=== PATIENT | female | born 1980 | race Caucasian/White ===

== ENCOUNTER 2016-03-27 | Outpatient (CLI) | payer SELFPAY | END 2016-03-27 14:32 | disposition critical access hospital (66) | CPT/HCPCS: A0425; A0429 ==

== ENCOUNTER 2016-03-27 14:53 | Emergency (ER) | payer SELFPAY ==
--- NOTE | 2016-03-27 15:40 | ED Physician Documentation ---
PD HPI SEIZURE - Stated complaint Stated Complaint: SEIZURE - Chief complaint Chief Complaint: General - History obtained from History obtained from: Patient, EMS, Caregiver - History of Present Illness Timing - onset: Today Witnessed: Witnessed Number of seizures: Single, Lasted minutes Description of seizure activity: Generalized Injury during seizure: None Associated symptoms: None, Dyspnea. No: Headache, Vision changes, Chest pain, Palpitations History of seizures: Known seizure disorder (has them infrequently about 1-2 per year and had been without seizure for awhile (2-3 years) so had stopped Lamictal about 2 years ago. Has had a seizure 3 months ago and again today. She would like to try being back on meds.) Contributing factors: Off meds. No: Substance abuse, EtOH withdrawal, Overdose , Fever, Sleep deprivation Similar symptoms before: Diagnosis (seizures) Recently seen: Clinic (seen for depression and anxiety. Had been on Celexa but not helping well, so is being weaned off to then start another. Feeling more anxious recently. Was back at PCP office today to discuss other meds and had generalized seizure with wetting/tongue biting and postictal confusion.) Review of Systems Constitutional: reports: Fever, Chills Nose: denies: Rhinorrhea / runny nose, Congestion Throat: denies: Sore throat Cardiac: denies: Palpitations, Pedal edema, Calf pain Respiratory: denies: Dyspnea, Cough PD PAST MEDICAL HISTORY - Past Medical History Neuro: Seizure disorder Psych: Depression - Past Surgical History Past Surgical History: No - Present Medications Home Medications: Ambulatory Orders Medication Instructions Recorded Confirmed Citalopram [CeleXA] 20 mg PO DAILY 04/09/15 04/09/15 [place] Carbonate 300 mg PO DAILY 03/27/16 03/27/16 Lorazepam [Ativan] 1 mg PO BID #15 tab 03/27/16 Montelukast [Singulair] 10 mg PO QPM 03/27/16 03/27/16 Ondansetron Odt [Zofran] 4 mg TL Q6H PRN #15 tablet 03/27/16 Potassium Chloride 10 meq PO DAILY #10 tab.er.prt 03/27/16 lamoTRIgine [LaMICtal] 25 mg PO DAILY #30 tablet 03/27/16 - Allergies Allergies/Adverse Reactions: Allergies Allergy/AdvReac Type Severity Reaction Status Date / Time No Known Drug Allergies Allergy Verified 03/27/16 15:14 - Social History Does the pt smoke?: No Smoking Status: Current every day smoker Does the pt drink ETOH?: Yes Does the pt have substance abuse?: Yes - Immunizations Immunizations are current?: Yes PD ED PE NORMAL - Vitals Vital signs reviewed: Yes - General General: Alert and oriented X 3, No acute distress, Well developed/nourished - HEENT HEENT: Ears normal, Moist mucous membranes, Pharynx benign, Other (mild lateral tongue abrasion) - Neck Neck: Supple, no meningeal sign, No adenopathy - Cardiac Cardiac: RRR, No murmur - Respiratory Respiratory: Clear bilaterally - Abdomen Abdomen: Soft, Non tender - Back Back: No CVA TTP - Derm Derm: Normal color, Warm and dry - Extremities Extremities: No tenderness to palpate, Normal ROM s pain, No edema - Neuro Neuro: Alert and oriented X 3, 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 mixer operator 2-12 intact, No motor deficit, No sensory deficit, Normal speech - Psych Psych: Normal mood, Normal affect Results - Vitals Vitals: Oxygen O2 Source Room air - Labs Labs: Laboratory Tests 03/27/16 03/27/16 03/27/16 16:15 16:15 16:15 WBC 14.1 H RBC 4.08 L Hgb 14.9 Hct 43.0 MCV 105.3 H MCH 36.4 H MCHC 34.6 RDW 14.9 Plt Count 174 MPV 8.0 Neut # 12.3 H Lymph # 1.1 L [place] # 0.6 Eos # 0.0 Baso # 0.1 Absolute Nucleated RBC 0.00 Nucleated RBCs 0.0 Sodium 136 Potassium 2.9 L Chloride 101 Carbon Dioxide 24 Anion Gap 11.0 BUN 6 Creatinine 1.1 H Estimated GFR (MDRD) 57 L Glucose 108 H Calcium 8.5 Magnesium 1.8 Total Bilirubin 1.0 AST 43 H ALT 23 Alkaline Phosphatase 79 Total Protein 6.5 L Albumin 3.8 Globulin 2.7 Albumin/Globulin Ratio 1.4 Lipase 48 Urine Color Urine Clarity Urine pH Ur Specific [place] Urine Protein Urine Glucose (UA) Urine Ketones Urine Occult Blood Urine Nitrite Urine Bilirubin Urine Urobilinogen Ur Leukocyte Esterase Ur Microscopic Review Urine Culture Comments Last Dose Date UNK Last Dose Time UNK Urine Opiates Screen Ur Oxycodone Screen Urine Methadone Screen Ur Propoxyphene Screen Ur Barbiturates Screen Ur Tricyclics Screen Ur Phencyclidine Scrn Ur Amphetamine Screen U Methamphetamines Scrn U Benzodiazepines Scrn [place] 0.15 Urine Cocaine Screen U Cannabinoids Screen Ethyl Alcohol < 5.0 03/27/16 17:41 WBC RBC Hgb Hct MCV MCH MCHC RDW Plt Count MPV Neut # Lymph # [place] # Eos # Baso # Absolute Nucleated RBC Nucleated RBCs Sodium Potassium Chloride Carbon Dioxide Anion Gap BUN Creatinine Estimated GFR (MDRD) Glucose Calcium Magnesium Total Bilirubin AST ALT Alkaline Phosphatase Total Protein Albumin Globulin Albumin/Globulin Ratio Lipase Urine Color LIGHT YELLOW Urine Clarity CLEAR Urine pH 7.0 Ur Specific [place] <=1.005 Urine Protein NEGATIVE Urine Glucose (UA) NEGATIVE Urine Ketones NEGATIVE Urine Occult Blood NEGATIVE Urine Nitrite NEGATIVE Urine Bilirubin NEGATIVE Urine Urobilinogen 0.2 (NORMAL) Ur Leukocyte Esterase NEGATIVE Ur Microscopic Review NOT INDICATED Urine Culture Comments NOT INDICATED Last Dose Date Last Dose Time Urine Opiates Screen NEGATIVE Ur Oxycodone Screen NEGATIVE Urine Methadone Screen NEGATIVE Ur Propoxyphene Screen NEGATIVE Ur Barbiturates Screen NEGATIVE Ur Tricyclics Screen NEGATIVE Ur Phencyclidine Scrn NEGATIVE Ur Amphetamine Screen NEGATIVE U Methamphetamines Scrn NEGATIVE U Benzodiazepines Scrn NEGATIVE [place] Urine Cocaine Screen NEGATIVE U Cannabinoids Screen NEGATIVE Ethyl Alcohol PD MEDICAL DECISION MAKING - ED course Complexity details: considered differential, d/w patient (she would like to be back on antiepileptic. Had been on Lamictal in the past. ), d/w intelligence consultant (weight control engineer for Dr. Javier - Lamictal is good choice if she had been on it in the past and did well. Help with mood as well. Keppra could augment depressive mood. However the Lamictal does not work quickly, so need to orally load over time. Patient okay with this, as her seizures are infrequent anyway.) Departure - Departure Disposition: 01 Home, Self Care Clinical Impression: Seizure, Hypokalemia Upper respiratory infection Qualifiers: URI type: unspecified URI Qualified Code(s): J06.9 - Acute upper respiratory infection, unspecified Condition: Stable Record reviewed to determine appropriate education?: Yes Instructions: Hypokalemia Dc, ED Seizure Recurrent Follow-Up: Alicia Barksdale, ENVIRONMENTAL QUALITY ANALYST [Primary Care Provider] - Fredrick Javier MD [Physician No Access] - Prescriptions: Lorazepam [Ativan] 1 mg PO BID #15 tab lamoTRIgine [LaMICtal] 25 mg PO DAILY #30 tablet Potassium Chloride 10 meq PO DAILY #10 tab.er.prt Ondansetron Odt [Zofran] 4 mg TL Q6H PRN #15 tablet PRN Reason: Nausea / Vomiting Comments: Drink lots of fluids. Zofran if needed for nausea. Daily potassium for 10 days. Start Lamictal every other day for a week, then daily for a week. Follow up with PCP and Neurologist. Ativan nightly for sleep the next week, and can take it twice daily for anxiety/shaky as needed. No driving until cleared by Neurologist. Off work for a few days. Forms: Activity restrictions Discharge Date/Time: 03/27/16 18:37
[2016-03-27] MEDS ORDERED: LORazepam 2 MG/ML SYRINGE IVP STA (15:57)
[2016-03-27] MEDS ORDERED: SODIUM CHLORIDE 0.9% 1,000 ML IV ONE (15:57)
[2016-03-27] MEDS ORDERED: LORazepam 2 MG/ML SYRINGE ONE (16:08)
[2016-03-27 16:20] LABS: BASOPHILS # (AUTO) 0.1 10^3/uL (0.0-0.1); BASOPHILS % (AUTO) 0.6 %; EOSINOPHILS % (AUTO) 0.3 %; HGB - HEMOGLOBIN 14.9 g/dL (12.0-16.0); LYMPHOCYTES # (AUTO) 1.1 10^3/uL (1.5-3.5); LYMPHOCYTES % (AUTO) 7.9 %; MEAN CORPUSCULAR HEMOGLOBIN 36.4 pg (27.0-31.0); MEAN CORPUSCULAR HGB CONC 34.6 g/dL (32.0-36.0); MEAN CORPUSCULAR VOLUME 105.3 fL (81.0-99.0); MONOCYTES # (AUTO) 0.6 10^3/uL (0.0-1.0); MONOCYTES % (AUTO) 4.3 %; NEUTROPHILS # (AUTO) 12.3 10^3/uL (1.5-6.6); NEUTROPHILS % (AUTO) 86.9 %; RED BLOOD COUNT 4.08 10^6/uL (4.20-5.40); RED CELL DISTRIBUTION WIDTH 14.9 % (12.0-15.0); UNCORRECTED WHITE BLOOD COUNT 14.1 x10^3/uL; WHITE BLOOD COUNT 14.1 x10^3/uL (4.8-10.8)
[2016-03-27 16:34] LABS: ALBUMIN/GLOBULIN RATIO 1.4 (1.0-2.2); BUN - BLOOD UREA NITROGEN 6 mg/dL (6-20); CALCIUM 8.5 mg/dL (8.5-10.3); CARBON DIOXIDE - CO2 24 mmol/L (21-32); CHLORIDE 101 mmol/L (101-111); CREATININE 1.1 mg/dL (0.4-1.0); GFR - MDRD 57 (>89); GLUCOSE 108 mg/dL (70-100); LIPASE 48 U/L (22-51); MAGNESIUM 1.8 mg/dL (1.7-2.8); POTASSIUM 2.9 mmol/L (3.5-5.0); SODIUM 136 mmol/L (135-145); TOTAL PROTEIN 6.5 g/dL (6.7-8.2)
--- NOTE | 2016-03-27 16:42 | XRAY Preliminary Report ---
Exam: XR Chest 1 View IMPRESSION: Normal single view chest. [facility] SITE ID: [id number]
--- NOTE | 2016-03-27 16:45 | XRAY Report ---
EXAM: CHEST RADIOGRAPHY EXAM DATE: 03/27/2016 04:24 PM. CLINICAL HISTORY: Seizure, cough/wheeze. COMPARISON: None. TECHNIQUE: 1 view. FINDINGS: Lungs/Pleura: No focal opacities evident. No pneumothorax or pleural effusion. Mediastinum: Within exam limitations, cardiomediastinal contour is normal. Other: None. IMPRESSION: Normal single view chest. [facility] Referring Provider Line: [phone] SITE ID: [id number]
[2016-03-27] MEDS ORDERED: POTASSIUM BICARB 25 MEQ TABLET PO STA (16:48)
[2016-03-27] MEDS ORDERED: POTASSIUM BICARB 25 MEQ TABLET PO ONE ×2 (16:54→16:58)
[2016-03-27] MEDS ORDERED: lamoTRIgine 25 MG TABLET PO STA (17:41)
[2016-03-27 17:55] LABS: BILIRUBIN,URINE NEGATIVE (NEGATIVE)
[2016-03-27 17:57] LABS: UA CHARGE (STRIP ONLY) YES; UR CULTURE IF IND NOT INDICATED
[2016-03-27 18:37] VITALS: BP 147/101
== END 2016-03-27 18:37 | disposition home or self-care (01) ==
LOC: EDUNIT# → ED 14:53
DX: G40.909 Epilepsy, unspecified, not intractable, without status epilepticus (principal); E87.6 Hypokalemia; J06.9 Acute upper respiratory infection, unspecified; S00.512A Abrasion of oral cavity, initial encounter; X58.XXXA Exposure to other specified factors, initial encounter; F17.200 Nicotine dependence, unspecified, uncomplicated
CPT/HCPCS: 36415; 71010; 80053; 80178; 80306; 80320; 81003; 83690; 83735; 85025; 96361; 96374; 99284; A9270; J2060; 81001; 87086

== ENCOUNTER 2016-04-14 | Outpatient (CLI) | payer SELFPAY | END 2016-04-14 16:05 | disposition EMS.NT | DX: R56.9 Unspecified convulsions (principal) ==

== ENCOUNTER 2016-04-14 16:39 | Emergency (ER) | payer SELFPAY ==
[2016-04-14] MEDS ORDERED: IPRATROPIUM/ALBUTEROL 3 ML NEB INH STA (17:19)
[2016-04-14] MEDS ORDERED: SODIUM CHLORIDE 0.9% 1,000 ML IV ONE ×2 (17:26→19:39)
[2016-04-14] MEDS ORDERED: LORazepam 2 MG/ML SYRINGE IVP STA (17:26)
[2016-04-14] MEDS ORDERED: IPRATROPIUM/ALBUTEROL 3 ML NEB INH ONE (17:32)
[2016-04-14] MEDS ORDERED: LORazepam 2 MG/ML SYRINGE ONE (17:45)
[2016-04-14] MEDS ORDERED: POTASSIUM BICARB 25 MEQ TABLET PO STA (19:23)
[2016-04-14] MEDS ORDERED: MAGNESIUM SULFATE 2 GRAM 50 ML IV ONE ×2 (19:23→19:33)
[2016-04-14] MEDS ORDERED: POTASSIUM BICARB 25 MEQ TABLET PO ONE (19:33)
[2016-04-14] MEDS ORDERED: ALBUTEROL 8 GM INHALER INH STA (20:52)
[2016-04-14] MEDS ORDERED: ALBUTEROL 8 GM INHALER INH ONE (21:19)
== END 2016-04-14 21:59 | disposition home or self-care (01) ==
DX: G40.909 Epilepsy, unspecified, not intractable, without status epilepticus (principal); E87.6 Hypokalemia; R06.2 Wheezing; R03.0 Elevated blood-pressure reading, without diagnosis of hypertension; F17.200 Nicotine dependence, unspecified, uncomplicated
CPT/HCPCS: 36415; 71020; 80053; 83690; 85025; 94640; 94664; 96361; 96374; 96375; 99284; A9270; J2060; J7620

== ENCOUNTER 2016-04-18 08:00 | Outpatient (CLI) | payer SELFPAY | END 2016-04-18 08:01 | disposition home or self-care (01) | DX: E87.6 Hypokalemia (principal) ==

== ENCOUNTER 2016-04-18 15:12 | Inpatient (IN) | payer SELFPAY ==
[2016-04-18] MEDS ORDERED: POTASSIUM CHLOR 10 MEQ/100 ML 100 ML IV ONE ×2 (16:25→16:39)
[2016-04-18] MEDS ORDERED: SODIUM CHLORIDE 0.9% 1,000 ML IV ONE ×2 (16:25→16:39)
[2016-04-18] MEDS ORDERED: POTASSIUM BICARB 25 MEQ TABLET PO STA (16:25)
[2016-04-18] MEDS ORDERED: POTASSIUM BICARB 25 MEQ TABLET PO ONE (16:39)
[2016-04-18] MEDS ORDERED: ONDANSETRON 4 MG/2 ML VIAL IVP STA (16:46)
[2016-04-18] MEDS ORDERED: ONDANSETRON 4 MG/2 ML VIAL ONE (16:54)
[2016-04-18] MEDS ORDERED: HYDROcod/ACETAM 5/325 MG TABLET PO PRN (18:01)
[2016-04-18] MEDS ORDERED: ONDANSETRON ODT 4 MG TABLET TL PRN (18:01)
[2016-04-18] MEDS ORDERED: SODIUM CHLORIDE FLUSH 0.9% 10 ML SYRINGE IVP PRN (18:01)
[2016-04-18] MEDS ORDERED: ACETAMINOPHEN 325 MG TABLET PO PRN (18:01)
[2016-04-18] MEDS ORDERED: LORazepam 2 MG/ML SYRINGE IVP PRN (18:19)
[2016-04-18] MEDS ORDERED: NICOTINE 14 MG PATCH TOP STA (18:30)
[2016-04-18] MEDS: PANTOPRAZOLE 40 MG TABLET PO SCH (19:32)
[2016-04-18] MEDS ORDERED: POTASSIUM CHLORIDE 20 MEQ TABLET PO SCH (23:47)
[2016-04-19] MEDS: NS W/20 MEQ KCL 1,000 ML IV SCH ×2 (00:13→08:32)
[2016-04-19] MEDS: SODIUM CHLORIDE FLUSH 0.9% 10 ML SYRINGE IVP SCH ×2 (00:13→06:06)
[2016-04-19] MEDS: PANTOPRAZOLE 40 MG TABLET PO SCH (06:05)
[2016-04-19] MEDS ORDERED: POLYETHYLENE GLYCOL 3350 17 GM PACKET PO SCH (09:00)
[2016-04-19] MEDS ORDERED: ENOXAPARIN 40 MG/0.4 ML SYRINGE SUBQ SCH (09:00)
== END 2016-04-19 08:53 | disposition home or self-care (01) | DRG 641 ==
DX: E87.6 Hypokalemia (principal); R19.7 Diarrhea, unspecified; F17.210 Nicotine dependence, cigarettes, uncomplicated; R11.2 Nausea with vomiting, unspecified; F41.9 Anxiety disorder, unspecified; F31.9 Bipolar disorder, unspecified; R56.9 Unspecified convulsions

== ENCOUNTER 2016-04-22 14:02 | Outpatient (CLI) | payer SELFPAY | END 2016-04-22 14:03 | disposition home or self-care (01) | DX: Z53.9 Procedure and treatment not carried out, unspecified reason (principal) ==

== ENCOUNTER 2016-04-23 14:01 | Outpatient (CLI) | payer SELFPAY | END 2016-04-23 14:02 | disposition home or self-care (01) | DX: Z79.899 Other long term (current) drug therapy (principal) ==

== ENCOUNTER 2016-05-25 17:06 | Emergency (ER) | payer SELFPAY | END 2016-05-25 19:46 | disposition home or self-care (01) | DX: T49.6X5A Adverse effect of otorhinolaryngological drugs and preparations, initial encounter (principal); Y92.512 Supermarket, store or market as the place of occurrence of the external cause; F10.129 Alcohol abuse with intoxication, unspecified; T50.996A Underdosing of other drugs, medicaments and biological substances, initial encounter; Z91.128 Patient's intentional underdosing of medication regimen for other reason; J45.909 Unspecified asthma, uncomplicated; F17.200 Nicotine dependence, unspecified, uncomplicated ==

== ENCOUNTER 2016-11-03 11:42 | Emergency (ER) | payer MEDICAID ==
[2016-11-03] MEDS ORDERED: SODIUM CHLORIDE 0.9% 1,000 ML IV ONE (14:45)
[2016-11-03] MEDS ORDERED: IOPAMIDOL-300 50 ML VIAL ONE (14:54)
[2016-11-03] MEDS ORDERED: IOPAMIDOL-300 100 ML VIAL ONE (14:54)
--- NOTE | 2016-11-03 14:54 | ED Physician Documentation ---
History of Present Illness - Stated complaint Stated Complaint: CONSTIPATED - Chief complaint Chief Complaint: Abd Pain - Additonal information Additional information: hx from pt 36 female 3 months of abd cramps, inc abd girth, swelling to LLQ and abn BM - mosltly very small BMs and liquid finally saw PMD last week, rx mag citrate - no imaging or rectal exam at that time took 3 bottles of mag citrate and no relief, also other laxatives s relief no prior abd surgery denies preg not sexually active for 10 yr Review of Systems Constitutional: denies: Fever, Chills Cardiac: denies: Chest pain / pressure Respiratory: denies: Dyspnea GI: reports: Abdominal Pain, Constipation, Diarrhea. 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 : None Psych: Depression, Anxiety Musculoskeletal: None - Past Surgical History Past Surgical History: No - Present Medications Home Medications: Ambulatory Orders Medication Instructions Recorded Confirmed Albuterol Sulf [Ventolin Hfa 2 puffs INH Q4HR PRN #1 inhaler 04/14/16 11/03/16 Inhaler] Potassium Citrate [Potassium 1 tab PO DAILY 11/03/16 11/03/16 Citrate ER] - Allergies Allergies/Adverse Reactions: Allergies Allergy/AdvReac Type Severity Reaction Status Date / Time No Known Drug Allergies Allergy Verified 05/25/16 17:16 - Social History Does the pt smoke?: Yes Smoking Status: Current every day smoker Does the pt drink ETOH?: No Does the pt have substance abuse?: No - Immunizations Immunizations are current?: Yes - POLST Patient has POLST: No PD ED PE NORMAL - Vitals Vital signs reviewed: Yes - Neck Neck: Supple, no meningeal sign - Cardiac Cardiac: RRR - Respiratory Respiratory: No respiratory distress, Clear bilaterally - Abdomen Abdomen: Other (+ BS, mild distension, ? mass LLQ, mild to mod diffuse TTP) - Rectal Rectal: Other (no stool in vault, no mass occuclt blood neg (no stool, QC passed )) - Derm Derm: Normal color - Neuro Neuro: Alert and oriented X 3 Results - Vitals Vitals: Vital Signs - 24 hr 11/03/16 11/03/16 11/03/16 12:06 14:05 15:50 Temperature 36.7 C 36.9 C Heart Rate 101 H 96 90 Respiratory 20 18 15 Rate Blood Pressure 133/96 H 138/93 H 139/101 H O2 Saturation 99 98 98 11/03/16 17:50 Temperature 36.5 C Heart Rate 81 Respiratory 14 Rate Blood Pressure 128/100 H O2 Saturation 100 Oxygen O2 Source Room air - Labs Labs: Laboratory Tests 11/03/16 11/03/16 11/03/16 14:59 14:59 14:59 WBC 9.7 RBC 3.64 L Hgb 13.3 Hct 39.2 MCV 107.5 H MCH 36.5 H MCHC 34.0 RDW 14.7 Plt Count 247 MPV 7.8 L Neut # 7.0 H Lymph # 1.8 [place] # 0.6 Eos # 0.2 Baso # 0.1 Absolute Nucleated RBC 0.00 Nucleated RBCs 0.0 Sodium 137 Potassium 3.3 L Chloride 106 Carbon Dioxide 24 Anion Gap 7.0 BUN 5 L Creatinine 0.5 Estimated GFR (MDRD) 140 Glucose 97 Calcium 8.4 L Total Bilirubin 0.8 AST 35 ALT 26 Alkaline Phosphatase 104 Total Protein 6.6 L Albumin 3.0 L Globulin 3.6 Albumin/Globulin Ratio 0.8 L Lipase 77 H Serum HCG, Qual NEGATIVE - Rads (name of study) CT PO and IV CT abd pelvis Radiology: EMP read contemporaneously (markedly abnormal and enlarged fatty liver, no mass noted, portal vein thrombosis with cavernous transformation and extensive collaterals in upper abd including esophageal, gastric and peripancreatic, mod to large ascites, 2.2 cm L ovarian cyst, non obstructive bowel otis, nl appendix) PD MEDICAL DECISION MAKING - ED course ED course: CT shows severe liver dx with portal vein thrombosis, collateral and ascites, but no bowel obstruction pt admits to long hx of heavy drinking, quit about a month ago 2/2 these sx will dc with referral to [facility] for further eval of liver dz and consideration of colonoscopy Departure - Departure Disposition: 01 Home, Self Care Clinical Impression: Liver disease due to alcohol Ascites Qualifiers: Ascites type: other type Qualified Code(s): R18.8 - Other ascites Condition: Fair Instructions: ED Ascites Follow-Up: [facility] [Provider Group] (call [facility] at [phone] to schedule follow up) Comments: The CT scan did not show any major bowel issues - but it did show significant liver disease with resultant ascites and portal vein thrombosis with collateral blood flow You can go home for today but you will need to follow up with the GI doctors for further evaluation and management - perhaps drain some of the ascites for testing, perhaps biopsy your liver, perhaps do a colonoscopy. I spoke to to the sole conditioner doctor and he advises that you should call the clinic in the morning to schedule an appointment Forms: Activity restrictions
[2016-11-03 15:05] LABS: BASOPHILS # (AUTO) 0.1 10^3/uL (0.0-0.1); BASOPHILS % (AUTO) 1.1 %; EOSINOPHILS # (AUTO) 0.2 10^3/uL (0.0-0.7); HCT - HEMATOCRIT 39.2 % (37.0-47.0); HGB - HEMOGLOBIN 13.3 g/dL (12.0-16.0); LYMPHOCYTES # (AUTO) 1.8 10^3/uL (1.5-3.5); LYMPHOCYTES % (AUTO) 18.9 %; MEAN CORPUSCULAR HEMOGLOBIN 36.5 pg (27.0-31.0); MEAN CORPUSCULAR VOLUME 107.5 fL (81.0-99.0); MEAN PLATELET VOLUME 7.8 fL (7.9-10.8); MONOCYTES # (AUTO) 0.6 10^3/uL (0.0-1.0); MONOCYTES % (AUTO) 5.9 %; NEUTROPHILS % (AUTO) 72.1 %; RED BLOOD COUNT 3.64 10^6/uL (4.20-5.40); RED CELL DISTRIBUTION WIDTH 14.7 % (12.0-15.0); UNCORRECTED WHITE BLOOD COUNT 9.7 x10^3/uL; WHITE BLOOD COUNT 9.7 x10^3/uL (4.8-10.8)
[2016-11-03 15:17] LABS: ALBUMIN/GLOBULIN RATIO 0.8 (1.0-2.2); BILIRUBIN,TOTAL 0.8 mg/dL (0.2-1.0); CALCIUM 8.4 mg/dL (8.5-10.3); CREATININE 0.5 mg/dL (0.4-1.0); POTASSIUM 3.3 mmol/L (3.5-5.0); TOTAL PROTEIN 6.6 g/dL (6.7-8.2)
[2016-11-03] MEDS ORDERED: IOPAMIDOL-300 100 ML VIAL IVP ONE (16:31)
[2016-11-03] MEDS ORDERED: IOPAMIDOL-300 50 ML VIAL PO ONE (16:31)
--- NOTE | 2016-11-03 17:42 | CT Preliminary Report ---
Exam: CT Abdomen/Pelvis W/ IMPRESSION: 1. Markedly abnormal, fatty and enlarged liver. No mass is noted. 2. Portal vein thrombosis with cavernous transformation. Splenic vein thrombosis or attenuation. Exte nsive collaterals are noted in the upper abdomen including esophageal, gastric and peripancreatic col laterals. 3. Moderate to large amount of ascites in the abdomen and pelvis. 4. 2.2 cm left ovarian cyst without concerning features. 5. Nonobstructive bowel gas pattern. Normal appendix. [facility] SITE ID: [id number]
--- NOTE | 2016-11-03 18:12 | CT Report ---
EXAM: CT ABDOMEN AND PELVIS EXAM DATE: 11/03/2016 04:42 PM. CLINICAL HISTORY: LLQ pain, ? mass, small BMs. COMPARISONS: None. TECHNIQUE: Routine helical CT imaging was performed through the abdomen and pelvis. IV contrast: 100 mL Isovue-300. Enteric contrast: Yes. Reconstructions: Coronal and sagittal. In accordance with CT protocol optimization, one or more of the following dose reduction techniques w ere utilized for this exam: automated exposure control, adjustment of mA and/or KV based on patient s ize, or use of iterative reconstructive technique. FINDINGS: Lung Bases: No effusions. No cardiac enlargement. Small hernia. Small esophageal varices. Liver: Markedly hypoattenuating liver parenchyma. No intrahepatic bile duct dilation or liver mass. Gallbladder/Bile Ducts: Unremarkable. Spleen: Normal. Pancreas: No pancreatic duct dilation, pancreatic calcifications or pancreatic mass is noted. Peripan creatic collateral vascularity noted. 5 mm pancreatic tail and 5 x 7 mm pancreatic body cystic struct ures best seen on image 30. No mass or nodular component is noted in the cystic structures. Adrenal Glands: Normal. Kidneys: No mass or hydronephrosis. Possible nonobstructing bilateral renal stones. Peritoneal Cavity/Bowel: Large amount of abdominal ascites. Nonspecific mesenteric stranding is noted in the abdomen and pelvis. No pneumoperitoneum. No dilated bowel concerning for obstruction. The caleb endix is well visualized and normal. There are multiple diverticula seen which most severely affect t he sigmoid colon. No wall thickening or adjacent inflammation seen. No obstruction noted. Pelvic Organs: Normal bladder. No uterine masses are noted. 2.2 cm left ovarian cyst without concerni ng features, image 78. Right ovary and adnexa not well seen. Probable additional smaller left-sided o varian cyst not well characterized. Large amount of nonloculated pelvic ascites. Vasculature: Complete portal vein thrombosis with cavernous transformation is noted. The splenic vein is attenuated or thrombosed. The more central aspects of the SMV are also thrombosed. Extensive geeta evelin, esophageal and peripancreatic collaterals. Bones: No significant abnormality. Other: None. IMPRESSION: 1. Markedly abnormal, fatty and enlarged liver. No mass is noted. 2. Portal vein thrombosis with cavernous transformation. Splenic vein thrombosis or attenuation. Exte nsive collaterals are noted in the upper abdomen including esophageal, gastric and peripancreatic col laterals. 3. Moderate to large amount of ascites in the abdomen and pelvis. 4. A 2.2 cm left ovarian cyst without concerning features. 5. Nonobstructive bowel gas pattern. Normal appendix. [facility] Referring Provider Line: [phone] SITE ID: [id number]
[2016-11-03 19:16] VITALS: BP 136/98
== END 2016-11-03 19:34 | disposition home or self-care (01) ==
LOC: ED 11:42
DX: K70.9 Alcoholic liver disease, unspecified (principal); R18.8 Other ascites
CPT/HCPCS: 36415; 74177; 80053; 83690; 84703; 85025; 99283; 99284; Q9967

== ENCOUNTER 2016-11-19 12:23 | Outpatient (CLI) | payer MEDICAID ==
[2016-11-19 13:12] LABS: INR 1.1 (0.8-1.2); PT - PROTHROMBIN TIME 12.3 secs (9.9-12.6)
[2016-11-19 13:19] LABS: PARTIAL THROMBOPLASTIN TIME 32.6 secs (24.9-33.3)
[2016-11-19 13:21] LABS: BILIRUBIN,DIRECT 0.1 mg/dL (0.1-0.5); BILIRUBIN,TOTAL 0.9 mg/dL (0.2-1.0); TOTAL PROTEIN 6.9 g/dL (6.7-8.2)
--- NOTE | 2016-11-19 15:53 | Ultrasound Report ---
LIMITED ABDOMINAL ULTRASOUND: 11/19/2016 CLINICAL INDICATION: Ascites. TECHNIQUE: Real-time scanning was performed with goodwill representative static images obtained. FINDINGS: Ultrasound of the four quadrants was performed. Comparison is made to previous CT of 11/03. Only a trace amount of ascites is seen in the right lower quadrant on the current examination, and th e volume is insufficient to allow for safe percutaneous aspiration. Hepatic ascites has resolved, and no perisplenic ascites is seen. IMPRESSION: INTERVAL DECREASE IN ASCITES FROM CT OF 11/03/2016, WITH ONLY A TRACE AMOUNT OF ASCITES NOW PRESENT IN THE RIGHT LOWER QUADRANT, INSUFFICIENT TO ALLOW FOR PERCUTANEOUS ASPIRATION. JOB #: [id number] EXT JOB #:[id number]
[2016-11-20 17:58] VITALS: BP 124/90
== END 2016-11-19 12:24 | disposition home or self-care (01) ==
LOC: LAB 12:23
PROVIDERS: ATTEND Internal Medicine Gastroenterology
DX: R18.8 Other ascites (principal)
CPT/HCPCS: 36415; 76705; 80076; 85610; 85730

== ENCOUNTER 2016-12-16 20:03 | Outpatient (CLI) | payer MEDICAID ==
[2016-12-18 15:11] LABS: TREPONEMA AB IGG NEGATIVE
== END 2016-12-16 20:04 | disposition home or self-care (01) ==
LOC: LAB.WCP 20:03
PROVIDERS: ATTEND Physician Assistant Medical
DX: Z11.4 Encounter for screening for human immunodeficiency virus [HIV] (principal)
CPT/HCPCS: 36415; 81599; 86695; 86696; 86780; 86803; 87389

== ENCOUNTER 2017-04-27 15:00 | Emergency (ER) | payer MEDICAID ==
[2017-04-27 15:48] LABS: ALBUMIN 4.3 g/dL (3.2-5.5); ALBUMIN/GLOBULIN RATIO 1.3 (1.0-2.2); ALKALINE PHOSPHATASE 77 IU/L (42-121); ALT ALANINE AMINOTRANSFERASE 22 IU/L (10-60); AST ASPARTATE AMINOTRANSFERASE 32 IU/L (10-42); BILIRUBIN,TOTAL 0.9 mg/dL (0.2-1.0); BUN - BLOOD UREA NITROGEN 5 mg/dL (6-20); CALCIUM 9.2 mg/dL (8.5-10.3); CARBON DIOXIDE - CO2 33 mmol/L (21-32); CHLORIDE 97 mmol/L (101-111); CREATININE 0.5 mg/dL (0.4-1.0); GFR - MDRD 140 (>89); GLUCOSE 118 mg/dL (70-100); LIPASE 15 U/L (22-51); SALICYLATE < 6.0 mg/dL; SODIUM 141 mmol/L (135-145); TOTAL PROTEIN 7.5 g/dL (6.7-8.2)
[2017-04-27 15:50] LABS: ACETAMINOPHEN < 10 ug/mL (10-30)
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
[2017-04-27] MEDS ORDERED: SODIUM CHLORIDE 0.9% 1,000 ML IV ONE (16:28)
[2017-04-27] MEDS ORDERED: FAMOTIDINE 20 MG/50 ML 50 ML IV ONE (16:29)
[2017-04-27] MEDS ORDERED: ONDANSETRON 4 MG/2 ML VIAL IVP STA (16:29)
[2017-04-27] MEDS ORDERED: LORazepam 2 MG/ML VIAL IVP STA (17:34)
[2017-04-27] MEDS ORDERED: KETOROLAC 30 MG/ML VIAL IVP STA (17:34)
[2017-04-27 17:53] LABS: MUDS CUTOFF CONCENTRATIONS CUTOFF CONC BELOW:
[2017-04-27 18:18] LABS: AMPHETAMINE SCREEN,URINE POSITIVE (NEGATIVE); BENZODIAZEPINES SCREEN, URINE NEGATIVE (NEGATIVE); COCAINE SCREEN URINE NEGATIVE (NEGATIVE); METHAMPHETAMINES SCREEN, URINE NEGATIVE (NEGATIVE); OPIATE SCREEN, URINE NEGATIVE (NEGATIVE); TRICYCLIC ANTIDEPRESSANT,URINE NEGATIVE (NEGATIVE)
[2017-04-27 18:19] LABS: METHADONE SCREEN, URINE NEGATIVE (NEGATIVE); OXYCODONE SCREEN, URINE NEGATIVE (NEGATIVE); PROPOXYPHENE SCREEN, URINE NEGATIVE (NEGATIVE)
[2017-04-27 19:36] VITALS: BP 132/89
--- NOTE | 2017-04-27 19:37 | CT Preliminary Report ---
Exam: CT HEAD W/O IMPRESSION: 1. No acute intercranial abnormality. 2. Similar nonspecific bilateral scattered supratentorial white matter hypodensities. [facility] SITE ID: [id number]
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
== END 2017-04-27 19:36 | disposition home or self-care (01) ==
LOC: ED 15:00
DX: F10.920 Alcohol use, unspecified with intoxication, uncomplicated (principal); V89.2XXA Person injured in unspecified motor-vehicle accident, traffic, initial encounter; F17.200 Nicotine dependence, unspecified, uncomplicated
CPT/HCPCS: 36415; 70450; 80053; 80306; 80307; 80320; 80329; 82140; 83690; 96365; 96375; 99283; 99284; J2060

== ENCOUNTER 2017-06-29 10:55 | Outpatient (CLI) | payer MEDICAID | END 2017-06-29 10:56 | disposition critical access hospital (66) | LOC: EMS 10:55 | PROVIDERS: ATTEND Surgery | DX: R56.9 Unspecified convulsions (principal) | CPT/HCPCS: A0425; A0427 ==

== ENCOUNTER 2017-06-29 11:17 | Emergency (ER) | payer MEDICAID ==
[2017-06-29 11:53] LABS: BILIRUBIN,URINE NEGATIVE (NEGATIVE); GLUCOSE, URINE (UA) NEGATIVE (NEGATIVE); KETONES,URINE (UA) NEGATIVE (NEGATIVE); LEUKOCYTE ESTERASE, URINE NEGATIVE (NEGATIVE); NITRITE,URINE NEGATIVE (NEGATIVE); OCCULT BLOOD,URINE SMALL (NEGATIVE); PROTEIN,URINE 100 mg/dL (NEGATIVE); UROBILINOGEN,URINE 0.2 (NORMAL) E.U./dL (NORMAL)
[2017-06-29 11:55] LABS: CLARITY,URINE CLEAR (CLEAR)
[2017-06-29 11:59] LABS: BACTERIA,URINE Rare /HPF (None Seen); SQUAMOUS EPITHELIAL CELL,UR FEW Squamous (<= Few)
[2017-06-29 12:00] LABS: CASTS, URINE 0-2 Hyaline Casts /LPF; MUCUS,URINE Few Strands
[2017-06-29] MEDS ORDERED: SODIUM CHLORIDE 0.9% 1,000 ML IV ONE (12:01)
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
[2017-06-29 12:16] LABS: HCG UR QUAL NEGATIVE
[2017-06-29 12:23] LABS: BASOPHILS % (AUTO) 0.3 %; EOSINOPHILS % (AUTO) 0.2 %; HGB - HEMOGLOBIN 12.4 g/dL (12.0-16.0); LYMPHOCYTES % (AUTO) 7.4 %; MEAN CORPUSCULAR HEMOGLOBIN 35.5 pg (27.0-31.0); MEAN CORPUSCULAR HGB CONC 35.1 g/dL (32.0-36.0); MEAN CORPUSCULAR VOLUME 101.1 fL (81.0-99.0); MEAN PLATELET VOLUME 7.1 fL (7.9-10.8); MONOCYTES # (AUTO) 0.6 10^3/uL (0.0-1.0); MONOCYTES % (AUTO) 4.4 %; NEUTROPHILS # (AUTO) 11.5 10^3/uL (1.5-6.6); NEUTROPHILS % (AUTO) 87.7 %; PLT - PLATELET COUNT 128 10^3/uL (130-450); WHITE BLOOD COUNT 13.1 x10^3/uL (4.8-10.8)
[2017-06-29 12:32] LABS: ALBUMIN 3.6 g/dL (3.2-5.5); ALBUMIN/GLOBULIN RATIO 1.3 (1.0-2.2); BILIRUBIN,TOTAL 1.1 mg/dL (0.2-1.0); CREATININE 0.6 mg/dL (0.4-1.0); TOTAL PROTEIN 6.4 g/dL (6.7-8.2)
[2017-06-29] MEDS ORDERED: POTASSIUM BICARB 25 MEQ TABLET PO STA (13:41)
[2017-06-29 14:07] VITALS: BP 144/105
== END 2017-06-29 14:35 | disposition home or self-care (01) ==
LOC: ED 11:17
DX: R56.9 Unspecified convulsions (principal); F43.9 Reaction to severe stress, unspecified; Z87.820 Personal history of traumatic brain injury; J45.909 Unspecified asthma, uncomplicated; F17.200 Nicotine dependence, unspecified, uncomplicated
CPT/HCPCS: 36415; 80053; 81001; 81025; 83690; 85025; 96360; 99284; A9270; 81003; 87086

== ENCOUNTER 2017-09-09 12:14 | Outpatient (CLI) | payer MEDICAID | END 2017-09-09 12:15 | disposition EMS.NT | LOC: EMS 12:14 | PROVIDERS: ATTEND Surgery | DX: R56.9 Unspecified convulsions (principal) ==

== ENCOUNTER 2017-09-12 11:50 | Outpatient (CLI) | payer MEDICAID | END 2017-09-12 11:51 | disposition critical access hospital (66) | LOC: EMS 11:50 | PROVIDERS: ATTEND Surgery | DX: R45.851 Suicidal ideations (principal); R52 Pain, unspecified; Z72.89 Other problems related to lifestyle | CPT/HCPCS: A0425; A0429; A0999 ==

== ENCOUNTER 2017-09-12 12:12 | Emergency (ER) | payer MEDICAID ==
[2017-09-12 12:20] VITALS: BP 128/104
[2017-09-12] MEDS ORDERED: THIAMINE INJ 100 MG in SODIUM CHLORIDE 0.9% 50 ML IV STA (12:31)
[2017-09-12] MEDS ORDERED: SODIUM CHLORIDE 0.9% 1,000 ML IV ONE (12:31)
--- NOTE | 2017-09-12 12:34 | ED Physician Documentation ---
History of Present Illness - Stated complaint Stated Complaint: ETOH - Chief complaint Chief Complaint: General - History obtained from History obtained from: Patient, EMS - History of Present Illness Timing: Today (37-year-old woman with history of seizure disorder, on an unknown antiepileptic although she does seem to have some familiarity with the word Keppra. Prior notes say she was on Celexa for seizure control, but this does not make sense. Anyway she relapsed to alcohol about a month ago and has been drinking heavily culminating in desperate nests making her drink mouthwash at the [employer] store today although she did not drink much of it. She complains of all over body pain after a seizure yesterday. She says she has been compliant with her antiepileptic. 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 Psych: Depression, Anxiety Musculoskeletal: None - Past Surgical History Past Surgical History: No - Present Medications Home Medications: Ambulatory Orders Medication Instructions Recorded Confirmed Citalopram Hydrobromide 04/27/17 [Citalopram HBr] Lorazepam [Ativan] 1 mg PO Q8H PRN #20 tablet 04/27/17 Promethazine [Phenergan] 25 - 50 mg PO Q6H PRN #30 tab 04/27/17 - Allergies Allergies/Adverse Reactions: Allergies Allergy/AdvReac Type Severity Reaction Status Date / Time No Known Drug Allergies Allergy Verified 09/12/17 12:17 - Social History Does the pt smoke?: Yes Smoking Status: Current every day smoker Does the pt drink ETOH?: No ETOH Use: Wine, Liquor Does the pt have substance abuse?: No - Family History Family history: reports: Non contributory - Immunizations Immunizations are current?: Yes - POLST Patient has POLST: No PD ED PE NORMAL - Vitals Vital signs reviewed: Yes - General General: Alert and oriented X 3, No acute distress, Other (Slow slurred speech but pleasant and coherent) - HEENT HEENT: PERRL, EOMI, Other (Healing abrasions on the upper lip and chin, no dental injury or tongue laceration.) - Neck Neck: Supple, no meningeal sign, No bony TTP - Cardiac Cardiac: RRR, No murmur - Respiratory Respiratory: No respiratory distress, Clear bilaterally - Abdomen Abdomen: Normal bowel sounds, Soft, Non tender - Extremities Extremities: Other (Shallow abrasions on the right medial elbow, and deeper abrasions, all healing, on the left knee. 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 Eye Opening: Spontaneous Motor: Obeys Commands Verbal: Oriented GCS Score: 15 - Psych Psych: Normal mood, Normal affect Results - Vitals Vitals: Vital Signs - 24 hr 09/12/17 12:13 Temperature 36.4 C L Heart Rate 110 H Respiratory 16 Rate Blood Pressure 128/104 H O2 Saturation 96 Oxygen O2 Source Room air - Labs Labs: Laboratory Tests 09/12/17 09/12/17 09/12/17 12:40 12:40 12:40 WBC 11.4 H RBC 4.34 Hgb 15.0 Hct 43.5 MCV 100.1 H MCH 34.6 H MCHC 34.5 RDW 14.4 Plt Count 113 L MPV 8.1 Neut # (Auto) 8.2 H Lymph # (Auto) 2.4 [place] # (Auto) 0.7 Eos # (Auto) 0.0 Baso # (Auto) 0.1 Absolute Nucleated RBC 0.00 Nucleated RBC % 0.0 Sodium 135 Potassium 2.6 L Chloride 95 L Carbon Dioxide 25 Anion Gap 15.0 H BUN 11 Creatinine 0.6 Estimated GFR (MDRD) 112 Glucose 135 H Calcium 8.4 L Magnesium 2.4 Total Bilirubin 1.0 AST 56 H ALT 23 Alkaline Phosphatase 108 Total Protein 7.2 Albumin 3.5 Globulin 3.7 Albumin/Globulin Ratio 0.9 L Lipase 104 H Last Dose Date Unknown Last Dose Time Unknown Salicylates < 6.0 Acetaminophen < 10 L Phenytoin < 2.5 Valproic Acid < 10.0 Ethyl Alcohol 461.5 PD MEDICAL DECISION MAKING - ED course ED course: 37-year-old woman with significant alcohol intoxication, and underlying seizure disorder and sees yesterday. She would like to go to detox and given the circumstances that is not unreasonable. The licensed clinical social worker did see her and gave her referral rolls for self-referral detox. I ordered IV fluids and thiamine, and was not prepared to discharge her but the patient eloped with steady gait prior to further evaluation and treatment. - Sepsis Event Vital Signs: Vital Signs - 24 hr 09/12/17 12:13 Temperature 36.4 C L Heart Rate 110 H Respiratory 16 Rate Blood Pressure 128/104 H O2 Saturation 96 Oxygen O2 Source Room air Departure - Departure Disposition: ED Elope Clinical Impression: Liver disease due to alcohol Alcoholic intoxication Qualifiers: Complication of substance-induced condition: uncomplicated Qualified Code(s): F10.920 - Alcohol use, unspecified with intoxication, uncomplicated Condition: Stable
[2017-09-12 12:50] LABS: BASOPHILS # (AUTO) 0.1 10^3/uL (0.0-0.1); BASOPHILS % (AUTO) 0.5 %; EOSINOPHILS % (AUTO) 0.2 %; LYMPHOCYTES # (AUTO) 2.4 10^3/uL (1.5-3.5); LYMPHOCYTES % (AUTO) 21.3 %; MEAN CORPUSCULAR HEMOGLOBIN 34.6 pg (27.0-31.0); MEAN CORPUSCULAR HGB CONC 34.5 g/dL (32.0-36.0); MEAN CORPUSCULAR VOLUME 100.1 fL (81.0-99.0); MEAN PLATELET VOLUME 8.1 fL (7.9-10.8); MONOCYTES # (AUTO) 0.7 10^3/uL (0.0-1.0); MONOCYTES % (AUTO) 6.1 %; NEUTROPHILS # (AUTO) 8.2 10^3/uL (1.5-6.6); NEUTROPHILS % (AUTO) 71.9 %; PLT - PLATELET COUNT 113 10^3/uL (130-450); RED BLOOD COUNT 4.34 10^6/uL (4.20-5.40); RED CELL DISTRIBUTION WIDTH 14.4 % (12.0-15.0); WHITE BLOOD COUNT 11.4 x10^3/uL (4.8-10.8)
[2017-09-12 13:03] LABS: ALBUMIN 3.5 g/dL (3.2-5.5); ALBUMIN/GLOBULIN RATIO 0.9 (1.0-2.2); ALKALINE PHOSPHATASE 108 IU/L (42-121); ALT ALANINE AMINOTRANSFERASE 23 IU/L (10-60); AST ASPARTATE AMINOTRANSFERASE 56 IU/L (10-42); BUN - BLOOD UREA NITROGEN 11 mg/dL (6-20); CALCIUM 8.4 mg/dL (8.5-10.3); CARBON DIOXIDE - CO2 25 mmol/L (21-32); CHLORIDE 95 mmol/L (101-111); CREATININE 0.6 mg/dL (0.4-1.0); GFR - MDRD 112 (>89); GLUCOSE 135 mg/dL (70-100); LIPASE 104 U/L (22-51); MAGNESIUM 2.4 mg/dL (1.7-2.8); SODIUM 135 mmol/L (135-145); TOTAL PROTEIN 7.2 g/dL (6.7-8.2)
[2017-09-12 13:06] LABS: SALICYLATE < 6.0 mg/dL
[2017-09-12 13:07] LABS: ACETAMINOPHEN < 10 ug/mL (10-30); PHENYTOIN (DILANTIN) < 2.5 ug/mL; VALPROIC ACID (DEPAKOTE) < 10.0 ug/mL
[2017-09-12] MEDS ORDERED: POTASSIUM BICARB 25 MEQ TABLET PO STA (13:21)
[2017-09-12] MEDS ORDERED: LIDOCAINE VISCOUS 2% 15 ML UDC MM STA (13:28)
== END 2017-09-12 14:18 | disposition left against medical advice (07) ==
LOC: EDUNIT# → ED 12:12
DX: K70.9 Alcoholic liver disease, unspecified (principal); F10.129 Alcohol abuse with intoxication, unspecified; G40.909 Epilepsy, unspecified, not intractable, without status epilepticus
CPT/HCPCS: 36415; 80053; 80164; 80185; 80307; 80320; 80329; 83690; 83735; 85025; 99282; 99283

== ENCOUNTER 2017-09-13 12:15 | Outpatient (CLI) | payer MEDICAID | END 2017-09-13 12:16 | disposition critical access hospital (66) | LOC: EMS 12:15 | PROVIDERS: ATTEND Surgery | DX: F32.9 Major depressive disorder, single episode, unspecified (principal); R10.9 Unspecified abdominal pain; Z72.89 Other problems related to lifestyle | CPT/HCPCS: A0425; A0429; A0999 ==

== ENCOUNTER 2017-09-13 12:36 | Emergency (ER) | payer MEDICAID ==
[2017-09-13 12:42] VITALS: BP 119/80
[2017-09-13] MEDS ORDERED: LIDOCAINE VISCOUS 2% 15 ML UDC MM STA (12:53)
[2017-09-13] MEDS ORDERED: THIAMINE 100 MG TABLET PO STA (12:53)
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
== END 2017-09-13 15:01 | disposition left against medical advice (07) ==
LOC: EDUNIT# → ED 12:36
DX: F10.920 Alcohol use, unspecified with intoxication, uncomplicated (principal); F17.200 Nicotine dependence, unspecified, uncomplicated
CPT/HCPCS: 99282; 99283; A9270

== ENCOUNTER 2018-08-12 13:19 | Emergency (ER) | payer MEDICAID ==
[2018-08-12 13:32] VITALS: BP 114/74
--- NOTE | 2018-08-12 13:39 | ED Physician Documentation ---
History of Present Illness - Stated complaint Stated Complaint: FIT FOR CORRECTION - Chief complaint Chief Complaint: General - History obtained from History obtained from: Patient - Additonal information Additional information: Patient is a 37-year-old female with history of alcohol use presenting in police custody for medical clearance. Patient reports alcohol use, but denies other recreational drug use. Patient denies any complications when stopping alcohol such as delirium, tremors, or seizure.Patient denies any other complaints including chest pain, difficulty breathing, abdominal pain, nausea, vomiting, urinary changes, or stool changes. Patient denies any current hallucinations, tremors, or other concerns. No other improving or worsening factors noted. 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 : None Psych: Depression, Anxiety Musculoskeletal: None - Past Surgical History Past Surgical History: No - Present Medications Home Medications: Ambulatory Orders Medication Instructions Recorded Confirmed No Known Home Medications 08/12/18 08/12/18 - Allergies Allergies/Adverse Reactions: Allergies Allergy/AdvReac Type Severity Reaction Status Date / Time No Known Drug Allergies Allergy Verified 08/12/18 13:32 - Social History Does the pt smoke?: No Smoking Status: Never smoker Does the pt drink ETOH?: No Does the pt have substance abuse?: No - Immunizations Immunizations are current?: Yes - POLST Patient has POLST: No PD ED PE NORMAL - Vitals Vital signs reviewed: Yes - General General: Alert and oriented X 3, No acute distress, Well developed/nourished - HEENT HEENT: Atraumatic, Moist mucous membranes - Neck Neck: Supple, no meningeal sign - Cardiac Cardiac: RRR, No murmur - Respiratory Respiratory: No respiratory distress, Clear bilaterally - Abdomen Abdomen: Soft, Non tender, Non distended - Derm Derm: Normal color, Warm and dry, No rash - Extremities Extremities: No deformity, No tenderness to palpate - Neuro Neuro: Alert and oriented X 3, No motor deficit, No sensory deficit - Psych Psych: Normal mood, Normal affect Results - Vitals Vitals: Vital Signs - 24 hr 08/12/18 13:23 Temperature 36 C L Heart Rate 90 Respiratory 16 Rate Blood Pressure 114/74 O2 Saturation 96 Oxygen O2 Source Room air PD MEDICAL DECISION MAKING - ED course Complexity details: considered differential, d/w patient ED course: Patient presenting for medical clearance in police custody. Patient adamantly denies any complaints at this time. Patient also denies any complications with alcohol withdrawal such as delirium, tremors, or seizure. Physical exam is rather benign with no signs of trauma, neurological deficit, or systemic illness. No asterixis, tremors, or other obvious changes of withdrawal present. Do not feel patient is in acute withdrawal, nor do I feel she is experiencing a different toxidrome.Do not feel patient requires further interventions at this time. Advised on return precautions including alcohol withdrawal symptoms, as well as other supportive cares and primary care follow-up. Departure - Departure Disposition: 01 Home, Self Care Clinical Impression: Alcohol intoxication Qualifiers: Complication of substance-induced condition: uncomplicated Qualified Code(s): F10.920 - Alcohol use, unspecified with intoxication, uncomplicated Condition: Good Instructions: ED Alcohol Intoxication Follow-Up: Alicia Barksdale ARNP [Primary Care Provider] - Within 3 Days Comments: And avoidance of Tylenol given concern for liver disease per patient's report. May use ibuprofen as needed for pain, inflammation, and fever relief. Recommend hydration, healthy diet, and follow-up with primary care physician next 2 to 3 days. If patient experiences alcohol withdrawal symptoms, has other concerns, or other complaints, please return to the ED immediately.
== END 2018-08-12 14:01 | disposition home or self-care (01) ==
LOC: ED 13:19
DX: F10.920 Alcohol use, unspecified with intoxication, uncomplicated (principal)
CPT/HCPCS: 99281; 99282

== ENCOUNTER 2021-04-13 16:26 | Outpatient (CLI) | payer MEDICAID | END 2021-04-13 16:27 | disposition critical access hospital (66) | LOC: EMS 16:26 | DX: U07.1 COVID-19 (principal) | CPT/HCPCS: A0425; A0427; A0999 ==

== ENCOUNTER 2021-04-13 16:45 | Emergency (ER) | payer MEDICAID ==
[2021-04-13] MEDS ORDERED: SODIUM CHLORIDE 0.9% 1,000 ML IV STA (16:49)
[2021-04-13] MEDS ORDERED: THIAMINE INJ 100 MG in SODIUM CHLORIDE 0.9% 50 ML IV STA (16:49)
--- NOTE | 2021-04-13 16:54 | ED Physician Documentation ---
PD HPI ALTERED MENTAL STATUS - Stated complaint Stated Complaint: AMS, C+ - History obtained from History obtained from: EMS - Additional information Additional information: 40-year-old woman with, per chart, history of alcoholism is brought in by ambulance. Most of the history is from the paramedics because of decreased mental status. Reportedly moved into a new apartment with new roommates, they were unaware that she was alcoholic, and also tested positive at home for COVID in the last few days and now has not been eating or drinking in the last few days but reportedly had 2 half empty bottles of alcohol with her. 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 : None Psych: Depression, Anxiety Musculoskeletal: None - Past Surgical History Past Surgical History: No - Present Medications Home Medications: Ambulatory Orders Medication Instructions Recorded Confirmed No Known Home Medications 08/12/18 08/12/18 - Allergies Allergies/Adverse Reactions: Allergies Allergy/AdvReac Type Severity Reaction Status Date / Time No Known Drug Allergies Allergy Verified 04/13/21 17:01 - Social History Does the pt smoke?: No Smoking Status: Never smoker Does the pt drink ETOH?: No Does the pt have substance abuse?: No - Immunizations Immunizations are current?: Yes - POLST Patient has POLST: No PD ED PE NORMAL - Vitals Vital signs reviewed: Yes - General General: No acute distress, Other (She is arousable with minimal stimulus, slow slurred speech, nystagmus with bloodshot eyes) - HEENT HEENT: PERRL - Neck Neck: Supple, no meningeal sign, No bony TTP - Cardiac Cardiac: RRR, No murmur - Respiratory Respiratory: No respiratory distress, Clear bilaterally - Abdomen Abdomen: Non tender - Back Back: No CVA TTP, No spinal TTP - Derm Derm: Normal color, Warm and dry - Extremities Extremities: No edema, No calf tenderness / cord - Neuro Eye Opening: To Voice Motor: Obeys Commands Verbal: Confused GCS Score: 13 Results - Vitals Vitals: Vital Signs - 24 hr 04/13/21 04/13/21 04/13/21 16:54 17:11 19:11 Temperature 35.7 C L 36.1 C L Heart Rate 101 H 100 104 H Respiratory 24 19 20 Rate Blood Pressure 140/100 H 153/104 H 130/94 H O2 Saturation 95 94 97 04/13/21 04/13/21 20:45 21:39 Temperature Heart Rate 111 H 122 H Respiratory 21 23 Rate Blood Pressure 136/92 H 129/97 H O2 Saturation 94 94 Oxygen O2 Source Room air - Labs Labs: Laboratory Tests 04/13/21 04/13/21 04/13/21 16:59 16:59 16:59 WBC 14.4 H RBC 5.09 Hgb 17.4 H Hct 48.2 H MCV 94.7 MCH 34.2 H MCHC 36.1 H RDW 12.5 Plt Count 321 MPV 8.7 Neut # (Auto) 10.8 H Lymph # (Auto) 2.8 Loup # (Auto) 0.7 Eos # (Auto) 0.1 Baso # (Auto) 0.1 Absolute Nucleated RBC 0.00 Nucleated RBC % 0.0 Sodium 142 Potassium 3.1 L Chloride 100 L Carbon Dioxide 27 Anion Gap 15.0 H BUN 12 Creatinine 0.7 Estimated GFR (MDRD) 93 Glucose 124 H Calcium 8.2 L Magnesium 2.2 Total Bilirubin 0.5 AST 44 H ALT 60 Alkaline Phosphatase 79 Total Protein 6.8 Albumin 3.8 Globulin 3.0 Albumin/Globulin Ratio 1.3 Lipase 72 H Last Dose Date UNKNOWN Last Dose Time UNKNOWN Salicylates < 6.0 Acetaminophen < 10 L D[place] < 0.05 Ethyl Alcohol 370.8 PD MEDICAL DECISION MAKING - ED course ED course: 40-year-old woman presents by ambulance, her mates had called the ambulance because she was altered today. She recently tested positive for Covid but it sounds like she is with new roommates and they did not know she was an alcoholic. On reexamination prior to shift change at 9:45 PM she is much more awake, she states that she was sober for 2 and half years but relapsed yesterday due to her depression. She is interested in inpatient treatment, but this may be complicated by the recent positive Covid test few days ago. She is signed out to the overnight emergency physician pending social work consultation in the morning. Departure - Departure Clinical Impression: Alcoholic intoxication Qualifiers: Complication of substance-induced condition: with delirium Qualified Code(s): F10.921 - Alcohol use, unspecified with intoxication delirium Condition: Stable Instructions: ED Alcohol Intoxication
[2021-04-13 17:06] LABS: BASOPHILS # (AUTO) 0.1 10^3/uL (0.0-0.1); BASOPHILS % (AUTO) 0.4 %; EOSINOPHILS # (AUTO) 0.1 10^3/uL (0.0-0.7); EOSINOPHILS % (AUTO) 0.3 %; HCT - HEMATOCRIT 48.2 % (37.0-47.0); HGB - HEMOGLOBIN 17.4 g/dL (12.0-16.0); LYMPHOCYTES # (AUTO) 2.8 10^3/uL (1.5-3.5); LYMPHOCYTES % (AUTO) 19.3 %; MEAN CORPUSCULAR HEMOGLOBIN 34.2 pg (27.0-31.0); MEAN CORPUSCULAR HGB CONC 36.1 g/dL (32.0-36.0); MEAN CORPUSCULAR VOLUME 94.7 fL (81.0-99.0); MEAN PLATELET VOLUME 8.7 fL (7.9-10.8); MONOCYTES # (AUTO) 0.7 10^3/uL (0.0-1.0); MONOCYTES % (AUTO) 4.5 %; NEUTROPHILS # (AUTO) 10.8 10^3/uL (1.5-6.6); NEUTROPHILS % (AUTO) 75.1 %; PLT - PLATELET COUNT 321 10^3/uL (130-450); RED BLOOD COUNT 5.09 10^6/uL (4.20-5.40); RED CELL DISTRIBUTION WIDTH 12.5 % (12.0-15.0); WHITE BLOOD COUNT 14.4 x10^3/uL (4.8-10.8)
[2021-04-13 17:18] LABS: ACETAMINOPHEN < 10 ug/mL (10-30); ALBUMIN 3.8 g/dL (3.2-5.5); ALBUMIN/GLOBULIN RATIO 1.3 (1.0-2.2); ALKALINE PHOSPHATASE 79 IU/L (42-121); ALT ALANINE AMINOTRANSFERASE 60 IU/L (10-60); AST ASPARTATE AMINOTRANSFERASE 44 IU/L (10-42); BILIRUBIN,TOTAL 0.5 mg/dL (0.2-1.0); BUN - BLOOD UREA NITROGEN 12 mg/dL (6-20); CALCIUM 8.2 mg/dL (8.5-10.3); CARBON DIOXIDE - CO2 27 mmol/L (21-32); CHLORIDE 100 mmol/L (101-111); CREATININE 0.7 mg/dL (0.4-1.0); ETOH - ETHANOL 370.8 mg/dL; GFR - MDRD 93 (>89); GLUCOSE 124 mg/dL (70-100); LIPASE 72 U/L (22-51); MAGNESIUM 2.2 mg/dL (1.7-2.8); POTASSIUM 3.1 mmol/L (3.5-5.0); SALICYLATE < 6.0 mg/dL; SODIUM 142 mmol/L (135-145); TOTAL PROTEIN 6.8 g/dL (6.7-8.2)
[2021-04-13] MEDS ORDERED: POTASSIUM CHLOR 10 MEQ/100 ML 10 MEQ/100 ML BAG IV STA (17:40)
[2021-04-13 18:05] LABS: LITHIUM < 0.05 mmol/L
[2021-04-13 23:19] LABS: MUDS CUTOFF CONCENTRATIONS CUTOFF CONC BELOW:
[2021-04-13 23:22] LABS: BILIRUBIN,URINE NEGATIVE (NEGATIVE); CLARITY,URINE CLEAR (CLEAR); GLUCOSE, URINE (UA) NEGATIVE (NEGATIVE); KETONES,URINE (UA) NEGATIVE (NEGATIVE); LEUKOCYTE ESTERASE, URINE NEGATIVE (NEGATIVE); NITRITE,URINE NEGATIVE (NEGATIVE); OCCULT BLOOD,URINE LARGE (NEGATIVE); PROTEIN,URINE 30 mg/dL (NEGATIVE); UROBILINOGEN,URINE 0.2 (NORMAL) E.U./dL (NORMAL)
[2021-04-13 23:23] LABS: HCG UR QUAL NEGATIVE
[2021-04-13 23:30] LABS: AMPHETAMINE SCREEN,URINE NEGATIVE (NEGATIVE); BARBITURATE SCREEN,UR NEGATIVE (NEGATIVE); BENZODIAZEPINES SCREEN, URINE NEGATIVE (NEGATIVE); COCAINE SCREEN URINE NEGATIVE (NEGATIVE); METHADONE SCREEN, URINE NEGATIVE (NEGATIVE); METHAMPHETAMINES SCREEN, URINE NEGATIVE (NEGATIVE); OPIATE SCREEN, URINE NEGATIVE (NEGATIVE); OXYCODONE SCREEN, URINE NEGATIVE (NEGATIVE); PROPOXYPHENE SCREEN, URINE NEGATIVE (NEGATIVE); THC CANNABINOID SCREEN, URINE NEGATIVE (NEGATIVE); TRICYCLIC ANTIDEPRESSANT,URINE NEGATIVE (NEGATIVE)
[2021-04-13 23:33] LABS: BACTERIA,URINE Few /HPF (None Seen); MUCUS,URINE Few Strands; SQUAMOUS EPITHELIAL CELL,UR MANY Squamous (<= Few); WBC,URINE 0-3 /HPF (0-5)
[2021-04-14 00:16] LABS: CORONAVIRUS 229E-RESP PCR NOT DETECTED; CORONAVIRUS HKU1-RESP PCR NOT DETECTED; CORONAVIRUS NL63-RESP PCR NOT DETECTED
[2021-04-14 00:17] LABS: B. PARAPERTUSSIS- RESP PCR PAN NOT DETECTED; B. PERTUSSIS- RESP PCR PANEL NOT DETECTED; C. PNEUMONIAE- RESP PCR PANEL NOT DETECTED; CORONAVIRUS OC43-RESP PCR NOT DETECTED; HUMAN METAPNEUMOVIRUS NOT DETECTED; INFLUENZA A- RESP PCR PANEL NOT DETECTED; INFLUENZA B - RESP PCR PANEL NOT DETECTED; M. PNEUMONIAE- RESP PCR PANEL NOT DETECTED; PARAINFLUENZA VIRUS 1 NOT DETECTED; PARAINFLUENZA VIRUS 2 NOT DETECTED; PARAINFLUENZA VIRUS 3 NOT DETECTED; PARAINFLUENZA VIRUS 4 NOT DETECTED; RHINOVIRUS/ENTEROVIRUS NOT DETECTED; RSV- RESP PCR PANEL NOT DETECTED; SARS-CoV-2 -RESP PCR PANEL DETECTED
[2021-04-14] MEDS ORDERED: ONDANSETRON ODT 4 MG TABLET TL STA ×2 (02:51→05:57)
[2021-04-14 07:43] LABS: ALBUMIN 3.9 g/dL (3.2-5.5); ALBUMIN/GLOBULIN RATIO 1.6 (1.0-2.2); BILIRUBIN,TOTAL 1.3 mg/dL (0.2-1.0); CALCIUM 8.1 mg/dL (8.5-10.3); CREATININE 0.5 mg/dL (0.4-1.0); ETOH - ETHANOL 49.1 mg/dL; POTASSIUM 2.9 mmol/L (3.5-5.0); TOTAL PROTEIN 6.3 g/dL (6.7-8.2)
[2021-04-14 07:44] LABS: BASOPHILS # (AUTO) 0.1 10^3/uL (0.0-0.1); BASOPHILS % (AUTO) 0.4 %; EOSINOPHILS # (AUTO) 0.2 10^3/uL (0.0-0.7); EOSINOPHILS % (AUTO) 0.8 %; HCT - HEMATOCRIT 40.1 % (37.0-47.0); HGB - HEMOGLOBIN 14.7 g/dL (12.0-16.0); LYMPHOCYTES % (AUTO) 10.1 %; MEAN CORPUSCULAR HEMOGLOBIN 34.2 pg (27.0-31.0); MEAN CORPUSCULAR HGB CONC 36.7 g/dL (32.0-36.0); MEAN CORPUSCULAR VOLUME 93.3 fL (81.0-99.0); MONOCYTES # (AUTO) 0.8 10^3/uL (0.0-1.0); MONOCYTES % (AUTO) 4.1 %; NEUTROPHILS # (AUTO) 16.6 10^3/uL (1.5-6.6); PLT - PLATELET COUNT 278 10^3/uL (130-450); RED CELL DISTRIBUTION WIDTH 12.3 % (12.0-15.0); WHITE BLOOD COUNT 19.7 x10^3/uL (4.8-10.8)
[2021-04-14 07:55] LABS: DIFFERENTIAL COMMENT MANUAL=AUTO DIFF; PLATELET ESTIMATE, MANUAL NORMAL (130-450,000) (NORMAL); PLATELET MORPHOLOGY NORMAL APPEARANCE (NORMAL); RBC MORPHOLOGY (MULTIPLE) NORMAL APPEARANCE (NORMAL)
[2021-04-14] MEDS ORDERED: SODIUM CHLORIDE 0.9% 1,000 ML IV STA ×2 (08:12)
[2021-04-14] MEDS ORDERED: LORazepam 2 MG/ML VIAL IVP STA ×2 (08:21→11:34)
--- NOTE | 2021-04-14 08:43 | XRAY Report ---
PROCEDURE: Chest 1 View X-Ray INDICATIONS: coivd, leukocytosis TECHNIQUE: One view of the chest was acquired. COMPARISON: None. FINDINGS: Surgical changes and devices: None. Lungs and pleura: No pleural effusions or pneumothorax. Lungs are clear. Mediastinum: Mediastinal contours appear normal. Heart size is normal. Bones and chest wall: No suspicious bony lesions. Overlying soft tissues appear unremarkable. IMPRESSION: Chest without acute cardiopulmonary abnormalities. No focal airspace disease. Reviewed by: Ted Perales MD on 04/14/2021 7:[address] [facility] Approved by: Ted Perales MD on 04/14/2021 7:[address] [facility] Station ID: [id number]
[2021-04-14 11:19] LABS: CREATININE 0.5 mg/dL (0.4-1.0)
[2021-04-14 12:22] VITALS: BP 132/94
--- NOTE | 2021-04-14 12:33 | ED Physician Documentation ---
ED Addendum - Addendum Addendum: 04/14/21 12:30 Patient had alcohol intoxication last night. She states that she had a relapse with her alcohol use. She is Covid positive. Recheck of laboratory testing this morning showed a significant drop in her sodium. She was given IV fluids and sodium rechecked. It is back significantly higher. She was given more IV fluids while here. There are no detox or rehab beds available in the state today. Patient requests to go home at this time and follow-up as an outpatient. Therefore resources will be given to the patient. Encouraged her to follow-up with her primary care doctor for further assistance. Patient is not suicidal or homicidal. Unclear etiology of the leukocytosis, this has followed when she has had a seizure from her epilepsy in the past. Possible that she had a seizure last night while here. Patient is currently asymptomatic and will return if she worsens. She is requesting medication to help with withdrawal. We will prescribe a small amount of medication. Patient informed not to drink while taking these medications. Patient counseled regarding signs and symptoms for which I believe and urgent re-evaluation would be necessary. Patient with good understanding of and agreement to plan and is comfortable going home at this time This document was made in part using voice recognition software. While efforts are made to proofread this document, sound alike and grammatical errors may occur. Departure - Departure Disposition: 01 Home, Self Care Clinical Impression: COVID-19, Hyponatremia Alcoholic intoxication Qualifiers: Complication of substance-induced condition: with delirium Qualified Code(s): F10.921 - Alcohol use, unspecified with intoxication delirium Leukocytosis Qualifiers: Leukocytosis type: unspecified Qualified Code(s): D72.829 - Elevated white blood cell count, unspecified Condition: Good Instructions: ED Alcohol Intoxication Follow-Up: your,doctor in 3-5 days [Other] Prescriptions: LORazepam [Ativan] 1 mg PO Q8H PRN #9 tablet PRN Reason: Alcohol Withdrawal Ondansetron Odt [Zofran] 4 mg TL Q6H PRN #10 tablet PRN Reason: Nausea / Vomiting Comments: Please follow-up with your doctor for further care. Return if you worsen. You need to have your sodium levels rechecked in 2 to 3 days with your doctor. You should also have your white blood cell count rechecked at that time. Return sooner if you worsen including abdominal pain, vomiting or other new or worrisome symptoms. You have tested positive for Covid, so need to continue to quarantine yourself at home. Your prescriptions were sent to [facility] in [place]. Crisis Line and is available to talk to someone [email or web address] is also available to chat with someone online if you prefer. There are also many resources on this website and apps for your phone to help with your mental health You can also text the word START to [phone] to chat with someome via text.
== END 2021-04-14 13:46 | disposition home or self-care (01) ==
LOC: EDUNIT# → ED 16:45
DX: U07.1 COVID-19 (principal); F10.121 Alcohol abuse with intoxication delirium; Y90.8 Blood alcohol level of 240 mg/100 ml or more; E87.1 Hypo-osmolality and hyponatremia; D72.829 Elevated white blood cell count, unspecified
CPT/HCPCS: 0202U; 36415; 71045; 80048; 80053; 80178; 80306; 80307; 80320; 80329; 81001; 81025; 83690; 83735; 85025; 96361; 96365; 96375; 96376; 99283; 99284; J2060; J3411; J7040; Q0162; 81003; 87086